=== PATIENT | female | born 1980 | race Caucasian/White ===

== ENCOUNTER 2016-10-08 14:53 | Outpatient (CLI) | payer BC ==
--- NOTE | 2016-10-08 16:21 | Diagnostic Imaging Report ---
SHIRA SPARROW~ [facility] [address] [facility] [address] [address] ~ ~ ~ ~ Report Submission Date: Oct 08, 2016 3:12:16 PM CDT Patient ~ Study Name: ARIANA June ~ Date: Oct 08, 2016 2:54:31 PM CDT ~ Modality Type: CR Gender: F ~ Description: LOWER EXTREMITY : 78 ~ Institution: [facility] Physician: SHIRA SPARROW ~ ~ ~ ~ Examination: Plain film knee History: Knee discomfort Findings:~3 views of the knee demonstrates normal cortical margins. No fracture. ~ No dislocation. No joint effusion. No soft tissue irregularity. Impression: No osseous abnormality ~ Electronically signed on Oct 08, 2016 3:12:16 PM CDT by: Yaw ORTIZ
== END 2016-10-08 14:54 ==
LOC: RAD 14:53
PROVIDERS: ATTEND Physician Assistant
DX: M25.561 Pain in right knee (principal)
CPT/HCPCS: 73560